=== PATIENT | male | born 1990 | race Caucasian/White ===

== ENCOUNTER 2016-12-28 08:56 | Outpatient (CLI) | payer OTHER ==
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
[2016-12-28] MEDS ORDERED: Lidocaine 2% Jelly 5 ML TUBE ONE (17:23)
[2016-12-28] MEDS ORDERED: Sodium Chloride 0.9% 15 ML NEB ONE (17:23)
== END 2016-12-28 08:57 | disposition home or self-care (01) ==
LOC: WCC 08:56
PROVIDERS: ATTEND Family Medicine
DX: T23.201D Burn of second degree of right hand, unspecified site, subsequent encounter (principal)
CPT/HCPCS: 97602; 99202; A4218; G0463